=== PATIENT | male | born 1960 | race Caucasian/White ===

== ENCOUNTER 2019-12-11 10:50 | Emergency (ER) | payer BC, SELFPAY ==
[2019-12-11 10:57] VITALS: BP 143/88; PULSE 88; RESP 16; TEMP 36.8; O2SAT 97
--- NOTE | 2019-12-11 11:31 | ED.GENADULT ---
HPI - General Adult General Chief complaint: Upper Respiratory Infection Stated complaint: sinus drainage/ear pain/cough Time Seen by Provider: 12/11/19 11:32 Source: patient and RN notes reviewed Mode of arrival: ambulatory Limitations: no limitations History of Present Illness HPI narrative: 59-year-old male presents with complaints of upper respiratory infection, sneezing, sinus drainage, facial congestion, and facial pressure for the past 14 days. OTC allergy medication without relief. Symptoms has increased over the past 5 days with increase facial pressure and intermittent productive cough. No facial swelling. Dry cough and intermittent productive cough (green phlegm). Nasal congestion. No rhinorrhea. No sore throat, neck or throat swelling. No voice change. Denies difficulty swallowing, jaw pain, dental pain, foreign body sensation, and rash. Remains active. The patient reports they have not been diagnosed with COVID-19. The patient reports they are not waiting for the results of a COVID-19 lab test. The patient reports they do not have fever, chills, weakness, fatigue, myalgia, or facial swelling. The patient reports they do not have a worsening cough or shortness of breath. Denies chest pain. The patient reports they do not have any rhinorrhea, sore throat, nausea, vomiting, abdominal pain, and diarrhea. Tolerating po intake well. Denies recent traveling. Denies concerns for COVID-19 or exposures been home since [id number] order except for essential household needs, working, and return home. At this time, patient is not suspected of having COVID-19. Some parts of this dictation were generated by voice recognition software and may contain typographical and/or grammatical inaccuracies. Related Data Home Medications Medication Instructions Recorded Confirmed amlodipine 5 mg PO DAILY 12/11/19 12/11/19 carvedilol 25 mg PO DAILY 12/11/19 12/11/19 dapagliflozin [Farxiga] 10 mg PO DAILY 12/11/19 12/11/19 icosapent ethyl [Vascepa] 1 g PO DAILY 12/11/19 12/11/19 irbesartan-hydrochlorothiazide 1 tablet PO DAILY 12/11/19 12/11/19 sitagliptin-metformin [Janumet] 1 tablet PO DAILY 12/11/19 12/11/19 Allergies Allergy/AdvReac Type Severity Reaction Status Date / Time No Known Allergies Allergy Mild Verified 12/11/19 10:56 Review of Systems Review of Systems: Narrative: CONSTITUTIONAL: Denies fever, chills, sweats. EYES: Denies visual changes, redness, discharge. ENT: Complains of congestion, facial congestion and pressure. Denies rhinorrhea, sore throat, otalgia. CARDIOVASCULAR: Denies chest pain, palpitations, edema. RESPIRATORY: Denies dyspnea, wheezing. Complains of dry cough/intermittent productive cough. GASTROINTESTINAL: Denies abdominal pain, nausea, vomiting, diarrhea. GENITOURINARY: Denies dysuria, hematuria, abnormal discharge SKIN: Denies rash or itching. MUSCULOSKELETAL: Denies acute back pain, joint pain, or myalgia. NEUROLOGIC: Denies numbness, or focal weakness. PSYCHIATRIC: Denies anxiety or depression. All other systems reviewed are negative, except as documented in HPI and below. [facility] Past Medical History Medical History (Updated 12/12/19 @ 00:00 by Abraham Snyder) Diabetes Heart attack Heart disease Hypertension Surgical History Surgical History (Updated 12/11/19 @ 11:49 by RADHIKA Ramos) History of ankle surgery Right History of right knee surgery History of shoulder surgery Right X2 Left X2, with a total reconstruction Family History Family History Sibling Hypertension Family history of diabetes mellitus in first degree relative Mother Family history of diabetes mellitus in first degree relative Family history of coronary artery disease Father Family history of coronary artery disease Social History Social History (Updated 12/11/19 @ 11:50 by RADHIKA Ramos) Smoking status: Former
== END 2019-12-11 11:50 | disposition home or self-care (01) ==
PROVIDERS: Emergency Provider Nurse Practitioner Family; PCP Family Medicine
DX: J01.00 Acute maxillary sinusitis, unspecified (principal); E11.9 Type 2 diabetes mellitus without complications; I10 Essential (primary) hypertension; Z87.891 Personal history of nicotine dependence; I25.2 Old myocardial infarction
CPT/HCPCS: 99213; G0463

== ENCOUNTER 2019-12-22 10:16 | Outpatient (CLI) | payer BC, SELFPAY ==
--- NOTE | ~2019-12-22 | XR_ITS ---
EXAMINATION: XR lumbar spine 2-3V DATE: 12/22/2019 10:35 INDICATION: Low back pain. TECHNIQUE: 3 views of lumbar spine were obtained. COMPARISON: Lumbar spine radiographs 06/21/2013 FINDINGS: There is 3 degrees dextrocurvature of lumbar spine. Vertebral body heights and intervertebr al disc heights are normal. There are bridging endplate osteophytes from lower thoracic spine to L2, consistent with diffuse idiopathic skeletal hyperostosis (DISH). There is multilevel mild facet joint osteoarthritis. IMPRESSION: 1. DISH. 2. Mild lumbar spondylosis. Reviewed, dictated and finalized at location A.
--- NOTE | ~2019-12-22 | XR_ITS ---
EXAMINATION: XR hip RT min 2V DATE: 12/22/2019 10:35 INDICATION: Right hip pain. TECHNIQUE: 2 views of right hip were obtained. COMPARISON: None. FINDINGS: Bone alignment is normal. No fracture. There is mild right hip osteoarthritis. IMPRESSION: 1. Mild right hip osteoarthritis. Reviewed, dictated and finalized at location A.
== END 2019-12-22 10:17 | disposition home or self-care (01) ==
PROVIDERS: PCP Family Medicine; Visit Provider Nurse Practitioner Family
DX: M47.896 Other spondylosis, lumbar region (principal); M16.11 Unilateral primary osteoarthritis, right hip
CPT/HCPCS: 72100; 73502

== ENCOUNTER → 2020-02-29 10:05 | Outpatient (REF) | payer BC, SELFPAY | LOC: ANHLAB 10:05 | PROVIDERS: PCP Family Medicine; Visit Provider Nurse Practitioner | DX: D49.2 Neoplasm of unspecified behavior of bone, soft tissue, and skin (principal) | CPT/HCPCS: 88305 ==

== ENCOUNTER → 2021-07-04 11:30 | Outpatient (CLI) | payer BC, SELFPAY ==
[2021-07-04 20:26] LABS: SARS-CoV-2 RNA PCR Negative
== END ==
PROVIDERS: PCP Family Medicine; Visit Provider Family Medicine
DX: R68.89 Other general symptoms and signs (principal); Z20.822 Contact with and (suspected) exposure to COVID-19
CPT/HCPCS: C9803; U0003; U0005

== ENCOUNTER 2022-01-07 15:21 | Outpatient (CLI) | payer BC, SELFPAY ==
--- NOTE | ~2022-01-07 | XR_ITS ---
EXAM: XR lumbar spine 2-3V DATE: 01/07/2022 15:47 HISTORY: M54.9 - Dorsalgia, unspecified . COMPARISON: 12/22/2019. FINDINGS: 5 nonrib-bearing lumbar-type vertebral bodies. Pedicles intact. Normal vertebral body alig nment. Vertebral body heights preserved. Mild disc space narrowing at L4-5. Multilevel marginal osteo phytosis. 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 M ultilevel facet sclerosis. No fracture or dislocation. IMPRESSION: Mild degenerative disc disease at L4-5. Multilevel facet arthropathy. DISH. Reviewed, dictated and finalized at location K. IMPRESSION: Mild degenerative disc disease at L4-5. Multilevel facet arthropath y. DISH.
--- NOTE | ~2022-01-07 | XR_ITS ---
EXAM: XR hip RT 2V w AP pelvis DATE: 01/07/2022 15:47 HISTORY: M25.551 - Pain in right hip . COMPARISON: 12/22/2019. FINDINGS: Normal mineralization. No fracture or dislocation. No lytic or blastic lesion. Mild bilate ral superior hip joint space narrowing. No erosion or periosteal change. Soft tissues within normal l imits. IMPRESSION: Bilateral hip osteoarthritis. Reviewed, dictated and finalized at location K.
== END 2022-01-07 15:22 | disposition home or self-care (01) ==
LOC: ANHIMG 15:24
PROVIDERS: PCP Family Medicine; Visit Provider Physician Assistant Medical
DX: M51.36 Other intervertebral disc degeneration, lumbar region (principal); M16.0 Bilateral primary osteoarthritis of hip
CPT/HCPCS: 72100; 73502

== ENCOUNTER 2022-10-15 11:40 | Outpatient (CLI) | payer BC, SELFPAY ==
--- NOTE | ~2022-10-15 | XR_ITS ---
AP and oblique views of the bilateral ribs, and PA and lateral chest radiographs Clinical History: Pain Findings: There is a mildly displaced fracture the lateral aspect of the right fifth rib. Lungs are c lear, without focal consolidation or pleural effusion. Cardiomediastinal contour is within normal aggarwal its. There is soft tissue emphysema at the right chest wall region.. Impression: Mildly displaced fracture at the lateral aspect of the right fifth rib. Soft tissue emphysema at the right chest wall region. Clear lungs. Reviewed, dictated and finalized at location . Impression: Mildly displaced fracture at the lateral aspect of the right fifth rib. Soft tissue emphysema at the right chest wall region. Clear lungs.
== END 2022-10-15 11:41 | disposition home or self-care (01) ==
PROVIDERS: PCP Family Medicine; Visit Provider Nurse Practitioner Family
DX: R07.81 Pleurodynia (principal)
CPT/HCPCS: 71046; 71110

== ENCOUNTER → 2023-07-09 09:27 | Outpatient (REF) | payer BC, SELFPAY | LOC: ANHLAB 09:27 | PROVIDERS: PCP Family Medicine; Visit Provider Plastic Surgery | DX: D48.5 Neoplasm of uncertain behavior of skin (principal) | CPT/HCPCS: 88305 ==

== ENCOUNTER 2024-06-30 15:50 | Outpatient (CLI) | payer MEDICARE, SELFPAY ==
--- NOTE | ~2024-06-30 | XR_ITS ---
EXAMINATION: XR chest 2V 06/30/2024 16:12 INDICATION: Wheezing and cough PROCEDURE: 2 view chest COMPARISON: 10/15/2022 FINDINGS: The lungs are clear. The cardiomediastinal silhouette is within normal limits. There are no pleural effusions. There is no pneumothorax suspected. IMPRESSION: 1: NO ACUTE CARDIOPULMONARY DISEASE. Reviewed, dictated and finalized at location B. DESSERT
== END 2024-06-30 15:51 | disposition home or self-care (01) ==
PROVIDERS: PCP Family Medicine; Visit Provider Nurse Practitioner Adult Health
DX: R06.2 Wheezing (principal); R05.8 Other specified cough
CPT/HCPCS: 71046

== ENCOUNTER 2025-04-04 11:38 | Outpatient (CLI) | payer MEDICARE, SELFPAY ==
--- NOTE | ~2025-04-04 | XR_ITS ---
EXAMINATION: XR shoulder LT min 2V DATE: 04/04/2025 12:00 INDICATION: Left shoulder pain TECHNIQUE: AP internally and externally rotated, AP oblique externally rotated and transscapular Y views of the left shoulder were obtained. COMPARISON: None FINDINGS: Postoperative change at the left shoulder including the left clavicle resection and likely acromioplasty as well as rotator cuff repair with suture anchor along the greater tuberosity. Left glenohumeral osteoarthritis with mild nonuniform joint space narrowing and large size marginal osteophytes along the humeral head and small marginal osteophytes along the glenoid. No fracture.There is at least mild lower cervical spondylosis with moderate to severe facet osteoarthritis. IMPRESSION: Mild left glenohumeral osteoarthritis with changes of prior left rotator cuff repair, distal clavicle resection and likely acromioplasty. Reviewed, dictated and finalized at location A. IMPRESSION: Mild left glenohumeral osteoarthritis with changes of prior left rotator cuff r epair, distal clavicle resection and likely acromioplasty.
--- NOTE | ~2025-04-04 | XR_ITS ---
EXAMINATION: XR knee LT min 4V DATE: 04/04/2025 12:00 INDICATION: Left knee pain TECHNIQUE: Weight bearing anteroposterior and [place], sunrise, and flexed lateral views of the left knee were obtained COMPARISON: None. FINDINGS: Alignment is normal. No fracture. There is moderate joint space narrowing the medial compartment which is more prominent thickening in the flexed position small marginal osteophytes at the patellofemoral compartment. In addition there is a central subchondral osteophyte consistent with overlying high-grade chondromalacia at the medial patellar facet. No joint effusion. Soft tissues are unremarkable. IMPRESSION: 1. Osteoarthritis at the left knee, moderate at the medial compartment and mild with likely high-grade chondromalacia at the patellofemoral compartment. Reviewed, dictated and finalized at location A.
--- OUTSIDE RECORDS SUMMARY | 2025-04-04 11:57 | XMS_ITS | Clinical Summary ---
Author Organization [facility] Address [address], [address] [address] Phone Care Team Providers Care [facility] Assistant Director Name Role Phone [place] Reyes MD Primary Care Provider [phone] Allergies No known active allergies Medications carvedilol (COREG) 25 MG Tablet Take 25 mg by mouth 2 times daily. Active amLODIPine (NORVASC) 5 MG Tablet Take 10 mg by mouth nightly. Active SITagliptin-met FORMIN (Janumet) 50-1000 MG Tablet Take 1 Tablet by mouth 2 times daily (with meals). Active irbesartan-hydr oCHLOROthiazide (AVALIDE) 300-12.5 MG Tablet Take 1 Tablet by mouth daily. Active Icosapent Ethyl (Vascepa) 1 g Capsule Take 2 Capsules by mouth 2 times daily. Active finasteride (PROSCAR) 5 MG Tablet Take 5 mg by mouth daily. Active pravastatin (Pravachol) 40 MG Tablet Take 40 mg by mouth every other day. Takes in the evening Active Testosterone 10 MG/ACT (2%) Gel by Transdermal route daily. 6 pumps Active aspirin EC 81 MG Tablet Delayed Response Take 81 mg by mouth daily. Active Dapagliflozin Propanediol (Farxiga) 5 MG Tablet Take by mouth daily. Active Testosterone Cypionate 200 MG/ML Solution 200 mg by Intramuscular route once a week. Active tamsulosin (FLOMAX) 0.4 MG Capsule Take 0.4 mg by mouth daily. Active tirzepatide (Mounjaro) 2.5 MG/0.5ML Solution Pen-injector 2.5 mg by Subcutaneous route once a week. Friday Active MULTIPLE VITAMINS PO Take 1 Tablet by mouth daily. Active Coenzyme Q10 (Co Q-10) 100 MG Capsule Take 1 Capsule by mouth daily. Active Active Problems Problem Noted Date Diagnosed Date Screening for colon cancer 05/25/2024 Family History Medical History Relation Name Comments Heart Disease Father Diabetes Mother Heart Disease Mother Diabetes Sister Heart Disease Sister Relation Name Status Comments Father Mother Sister Social History Tobacco Use Types Packs/Day Years Used Date Smoking Tobacco: Former Cigarettes 2 25 1 982 - 2006 Smokeless Tobacco: Never Tobacco Cessation:Counseling Given: Not Answered Alcohol Use Standard Drinks/Week Comments Yes 0 (1 standard drink = 0.6 oz pur e alcohol) rare Sex and Gender Information Value Date Recorded Sex Assigned at Not on file Legal Sex Male 11:01 PM CDT Gender Identity Not on file Sexual Orientation Not on file Last Filed Vital Signs Vital Sign Reading Time Taken Comments Blood Pressure 140/81 05/25/2024 11:34 AM CDT Pulse 83 05/25/2024 11:34 AM CDT Temperature 36.2 C (97.2 F) 05/25/2024 11:34 AM CDT Respiratory Rate 14 05/25/2024 11:34 AM CDT Oxygen Saturation 96% 05/25/2024 11:34 AM CDT Inhaled Oxygen Concentration - - Weight 122.5 kg (270 lb) 05/07/2024 3:00 PM CDT Height 182.9 cm (6') 05/07/2024 3:00 PM CDT Body Mass Index 36.62 05/07/2024 3:00 PM CDT Plan of Treatment Health Maintenance Due Date Last Done Comments Hepatitis C Virus (HCV) Screening 1961 Cologuard 2006 Immunochemical Fecal Occult Blood 2006 PSA Discussion 01/25/2016 Pneumococcal Immunization (50+ years) (2 of 2 - PCV) 05/17/2020 05/17/2019 Respiratory Syncytial Virus (RSV) Immunization (Adult) (1 - Risk 60-74 years 1-dose series) 2021 Influenza Immunization (#1) 03/28/202504/27, 05/25/2023, 07/12/2022, Additional history exists SARS-COV-2 Immunization ( season) 2025 07/12/2022, 05/31/2021, 10/07/2020, Additional history exists Colonoscopy 05/25/2029 05/25/2024, 12/01/2020 Colorectal Cancer Screening 05/25/2029 Zoster Immunization Completed 02/22/2019, 9 Pneumococcal Immunization Combined Discontinued 05/17/2019 DTaP/Tdap/Td Immunization Discontinued 12/24/2019 TdaP Immunization Completed 12/24/2019 Hepatitis B Immunization Aged Out No longer eligible based on patient's age to complete this topic Human Papillomavirus (HPV) Immunization Aged Out No longer eligible based on patient's age to complete this topic Meningococcal Immunization (ACWY) Aged Out No longer eligible based on patient's age to complete this topic Rotavirus Immunization Aged Out No lo nger eligible based on patient's age to complete this [place] [address] MEDICARE C [facility] on file Care Teams Child Care Center Assistant Director Relationship Specialty Start Date End Date [place] Reyes MD [address] [place] [address] PCP - General Family Medicine 10/05/20
--- OUTSIDE RECORDS SUMMARY | 2025-04-04 11:57 | XMS_ITS | Clinical Summary ---
Author Organization [facility] Address [address] [place] [address] Care Team Providers Care Community Support Specialist Name Role Phone [place] Reyes MD Primary Care Provider [phone] NeilRogerio zarate MD Unavailable [phone] Allergies No known active allergies Medications testosterone cypionate (DEPO-TESTOTERO NE) 200 mg/mL injection Inject 200 mg into the muscle as instructed every 14 (fourteen) days Active tamsulosin (FLOMAX) 0.4 mg extended release capsule Take 0.4 mg by mouth daily Active dapagliflozin (FARXIGA) 10 mg tablet Take 10 mg by mouth daily Active irbesartan-hydr oCHLOROthiazide (AVALIDE) 300-12.5 mg per tabletIndicatio ns:hypertension Take 1 tablet by mouth daily Active pravastatin (PRAVACHOL) 40 mg tablet Take 40 mg by mouth every other day Active amLODIPine (NORVASC) 5 mg tablet Take 5 mg by mouth daily Active finasteride (PROSCAR) 5 mg tablet Take 5 mg by mouth daily Active carvediloL (COREG) 25 mg tablet Take 25 mg by mouth 2 (two) times a day with meals Active SITagliptin phos-metformin (JANUMET) 50-1,000 mg per tablet Take 1 tablet by mouth 2 (two) times a day with meals Active traMADoL (ULTRAM) 50 mg tablet Take 50 mg by mouth every 6 (six) hours as needed for pain Active icosapent ethyL (VASCEPA) 1 gram capsule Take 1 g by mouth 2 (two) times a day Active meloxicam (MOBIC) 15 mg tablet Take 15 mg by mouth daily Active tiZANidine (ZANAFLEX) 4 mg tablet Take 4 mg by mouth every 6 (six) hours as needed for muscle spasms Active Active Problems No known active problems Social History Tobacco Use Types Packs/Day Years Used Date Smoking Tobacco: Former Cigarettes Smokeless Tobacco: Never Tobacco Cessation:Counseling Given: Not Answered AUDIT-C Answer Date Recorded Q1: How often do you have a drink containing alcohol? Never 06/18/2022 Q2: How many drinks containi ng alcohol do you have on a typical day when you are drinking? Patient does not drink Frequency of Binge Drinking Not on file 05/29 Sex and Gender Information Value Date Recorded Sex Assigned at Not on file Legal Sex Male 12:27 AM [employer]LECT[employer] DR[employer] Gender Identity Not on file Sexual Orientation Not on file Obstetrics History Last Filed Vital Signs Vital Sign Reading Time Taken Comments Blood Pressure 120/69 06/25/2022 10:40 AM [employer] Pulse 83 06/25/2022 10:40 AM [employer] Temperature 36.4 C (97.6 F) 06/25/2022 9:54 AM [employer]IVER Respiratory Rate 18 06/25/2022 10:40 AM [employer]IVER Oxygen Saturation 90% 06/25/2022 10:40 AM [employer] Inhaled Oxygen Concentration - - Weight 124.2 kg (273 lb 13 oz) 06/25/2022 6:28 A M [employer] Height 182.9 cm (6') 06/18/2022 10:20 AM [employer]IVER Body Mass Index 37.14 06/18/2022 10:20 AM [employer] Plan of Treatment Health Maintenance Due Date Last Done Comments Colon Cancer Screening-Colonoscopy 1961 Depression Screening 1961 Hepatitis C Screening 1961 Prostate Cancer Screening-PSA 1961 Hepatitis B Screening 1979 Regular Well Visit/Exam 18-64 1979 Covid-19 Vaccine ( season) 2024 05/31/2021, 10/07/2020, 09/08/2020 Influenza Vaccine (#1) 2025 , 05/08/2020, 04/05/2019, Additional history exists DTaP/Tdap/Td Vaccine (2 - Td or Tdap) 12/23/2029 12/24/2019 Zoster Vaccine Completed 02/22/2019, 11/18/2018 Pneumococcal vaccine <65 Aged Out 05/17/2019 No longer eligible based on patient's age to complete this topic Insurance [employer] [place] [employer] [facility] Care Teams Community Support Specialist Relationship Specialty Start Date End Date [place] Reyes MD PCP - General Family Medicine 06/17/22 Rogerio Trejo MD [id number] [place] [address] Consulting Physician Neurosurgery 06/25/22
== END 2025-04-04 11:39 | disposition home or self-care (01) ==
PROVIDERS: PCP Family Medicine; Visit Provider Family Medicine
DX: M17.12 Unilateral primary osteoarthritis, left knee (principal); M19.012 Primary osteoarthritis, left shoulder
CPT/HCPCS: 73030; 73564